=== PATIENT | male | born 1980 | race Caucasian/White ===

== ENCOUNTER 2016-08-17 13:47 | Inpatient (IN) | payer MEDICARE, MEDICAID ==
[~2016-08-17] VITALS: Ht 167.6 cm; Wt 78.2 kg
[~2016-08-17 13:47] MED LIST: ARIP15TA3 PO; BUPR-93 PO
[2016-08-17 18:14] LABS: BASOPHILS # (AUTO) 0.06 K/uL (0.00-0.20); BASOPHILS % (AUTO) 0.6 % (0.0-2.0); EOSINOPHILS # (AUTO) 0.25 K/uL (0.00-0.70); EOSINOPHILS % (AUTO) 2.34 % (1.0-6.0); HEMATOCRIT 43.1 % (41-53); HEMOGLOBIN 14.6 g/dL (13.5-17.5); LYMPHOCYTES # (AUTO) 2.5 K/uL (1.0-4.8); LYMPHOCYTES % (AUTO) 23.4 % (22.0-44.0); MEAN CORPUSCULAR HEMOGLOBIN 29.4 pg (26.0-34.0); MEAN CORPUSCULAR VOLUME 86 fL (80-100); MONOCYTES # (AUTO) 0.6 K/uL (0.1-1.0); MONOCYTES % (AUTO) 6.1 % (2.0-9.0); NEUTROPHILS # (AUTO) 7.1 K/uL (1.8-7.7); NEUTROPHILS % (AUTO) 67.6 % (40.0-70.0); PLATELET COUNT (AUTO) 364 K/uL (150-450); RED BLOOD CELL COUNT(AUTO) 4.99 MIL/uL (4.50-5.90); RED CELL DISTRIBUTION WIDTH 12.8 % (11.5-14.5); WHITE BLOOD COUNT (AUTO) 10.5 K/uL (4.5-11.0)
[2016-08-17 18:25] LABS: ANION GAP 7 mmol/L (8-16); CALCIUM, TOTAL 8.9 mg/dL (8.8-10.5); CARBON DIOXIDE 29 mmol/L (22-29); CHLORIDE 102 mmol/L (98-107); CREATININE 1.28 mg/dL (0.60-1.30); GLOMERULAR FILTR. RATE CALC > 60 mL/min (>60); POTASSIUM 4.1 mmol/L (3.5-5.1); SODIUM SERUM 138 mmol/L (136-145); UREA NITROGEN, BLOOD 12 mg/dL (7-18)
[2016-08-17 18:32] LABS: ALANINE AMINOTRANSFERASE 41 U/L (12-78); ALBUMIN 3.7 g/dL (3.4-5.0); ASPARTATE AMINOTRANSFERASE 24 U/L (15-37); BILIRUBIN,TOTAL 0.7 mg/dL (0.1-1.0); TOTAL PROTEIN, SERUM 7.4 g/dL (6.4-8.2)
[2016-08-17] MEDS ORDERED: ZOLPIDEM TARTRATE 10 MG TABLET PO PRN (20:15)
[2016-08-17] MEDS ORDERED: OLANZapine 5 MG RAPDIS TABLET PO PRN (20:15)
[2016-08-17 21:40] VITALS: BP 126/68
[2016-08-17] MEDS ORDERED: INFLUENZA VIRUS VACCINE QVS 2016-17 (3YR+)/PF 60 MCG/0.5 ML SYRINGE IM ONE (22:15)
[2016-08-18 07:08] VITALS: BP 125/65
[2016-08-18 09:06] VITALS: BP 104/60
[2016-08-18] MEDS ORDERED: HydrOXYzine PAMOATE 50 MG CAPSULE PO PRN (13:45)
[2016-08-18] MEDS ORDERED: GuaiFENesin/D-METHORPHAN [SUGAR-FREE] 200-20MG/10 ML SYRUP UDCUP PO PRN (13:45)
[2016-08-18] MEDS ORDERED: LOPERAMIDE HCL 2 MG CAPSULE PO PRN (13:45)
[2016-08-18] MEDS ORDERED: TUBERCULIN, PURIFIED PROTEIN DERIVATIVE 5 TU/0.1 ML SYG ID ONE (13:45)
[2016-08-18] MEDS ORDERED: MAGNESIUM HYDROXIDE SUSPENSION 30 ML UDCUP PO PRN (13:45)
[2016-08-18] MEDS ORDERED: ACETAMINOPHEN 325 MG TABLET PO PRN (13:45)
[2016-08-18] MEDS ORDERED: PROMETHAZINE HCL 25 MG TABLET PO PRN (13:45)
[2016-08-18 16:12] VITALS: BP 119/62
[2016-08-18] MEDS: THIAMINE HCL 100 MG TABLET PO SCH (17:07)
[2016-08-18] MEDS ORDERED: ARIPiprazole ER SUSPENSION 400 MG PRE-FILLED DUAL CHAMBER SYRINGE IM ONE (21:00)
[2016-08-18] MEDS ORDERED: OLANZapine 5 MG RAPDIS TABLET PO SCH (21:00)
[2016-08-18] MEDS: ARIPiprazole 15 MG TABLET PO SCH (21:07)
[2016-08-19 02:50] VITALS: BP 112/63
[2016-08-19 08:27] VITALS: BP 106/65
[2016-08-19] MEDS: THIAMINE HCL 100 MG TABLET PO SCH ×2 (09:27→17:00)
[2016-08-19] MEDS: MULTIVITAMINS WITH MINERALS, THERAPEUTIC TABLET PO SCH (09:27)
[2016-08-19] MEDS: FOLIC ACID 1 MG TABLET PO SCH (09:27)
[2016-08-19 16:00] VITALS: BP 118/67
[2016-08-19] MEDS: LORazepam 2 MG TABLET PO PRN (17:00)
[2016-08-19] MEDS: ARIPiprazole 15 MG TABLET PO SCH (20:35)
[2016-08-20 06:42] VITALS: BP 110/64
[2016-08-20 08:20] VITALS: BP 109/65
[2016-08-20] MEDS: LORazepam 2 MG TABLET PO PRN ×2 (09:33→17:28)
[2016-08-20] MEDS: MULTIVITAMINS WITH MINERALS, THERAPEUTIC TABLET PO SCH (09:33)
[2016-08-20] MEDS: FOLIC ACID 1 MG TABLET PO SCH (09:33)
[2016-08-20] MEDS: THIAMINE HCL 100 MG TABLET PO SCH ×2 (09:33→17:28)
[2016-08-20] MEDS ORDERED: ARIP15TA3 PO (13:35)
[2016-08-20] MEDS ORDERED: ARIP400S3 IM (13:35)
[2016-08-20 16:00] VITALS: BP 117/71
[2016-08-20] MEDS: ARIPiprazole 15 MG TABLET PO SCH (20:34)
[2016-08-21 06:45] VITALS: BP 118/78
[2016-08-21 08:03] VITALS: BP 116/61
[2016-08-21] MEDS ORDERED: ARIP15TA3 PO (08:54)
[2016-08-21] MEDS ORDERED: ARIP400S3 IM (08:54)
[2016-08-21] MEDS: NICOTINE 14 MG/24 HOUR PATCH TD SCH (09:00)
[2016-08-21] MEDS: THIAMINE HCL 100 MG TABLET PO SCH ×2 (09:09→17:02)
[2016-08-21] MEDS: FOLIC ACID 1 MG TABLET PO SCH (09:09)
[2016-08-21] MEDS: MULTIVITAMINS WITH MINERALS, THERAPEUTIC TABLET PO SCH (09:09)
[2016-08-21] MEDS ORDERED: NALT50 PO (11:04)
[2016-08-21 16:00] VITALS: BP 113/70
[2016-08-21] MEDS: LORazepam 2 MG TABLET PO PRN (17:02)
[2016-08-21] MEDS: MAG HYDROX/AL HYDROX/SIMETH ES 30 ML SUSPENSION UDCUP PO PRN (20:33)
[2016-08-21] MEDS: ARIPiprazole 15 MG TABLET PO SCH (21:03)
[2016-08-22 06:59] VITALS: BP 109/65
[2016-08-22 08:14] VITALS: BP 115/69
[2016-08-22] MEDS: NALTREXONE HCL 50 MG TABLET PO SCH (08:20)
[2016-08-22] MEDS: FOLIC ACID 1 MG TABLET PO SCH (08:20)
[2016-08-22] MEDS: THIAMINE HCL 100 MG TABLET PO SCH ×2 (08:20→16:57)
[2016-08-22] MEDS: MULTIVITAMINS WITH MINERALS, THERAPEUTIC TABLET PO SCH (08:20)
[2016-08-22] MEDS: NICOTINE 14 MG/24 HOUR PATCH TD SCH (08:20)
[2016-08-22] MEDS: LORazepam 2 MG TABLET PO PRN (12:39)
[2016-08-22 16:00] VITALS: BP 108/77
[2016-08-22] MEDS: ARIPiprazole 15 MG TABLET PO SCH (20:31)
[2016-08-23 06:44] VITALS: BP 106/67
[2016-08-23 08:26] VITALS: BP 110/65
[2016-08-23] MEDS: NALTREXONE HCL 50 MG TABLET PO SCH (08:45)
[2016-08-23] MEDS: MULTIVITAMINS WITH MINERALS, THERAPEUTIC TABLET PO SCH (08:45)
[2016-08-23] MEDS: THIAMINE HCL 100 MG TABLET PO SCH ×2 (08:45→16:59)
[2016-08-23] MEDS: FOLIC ACID 1 MG TABLET PO SCH (08:45)
[2016-08-23] MEDS: NICOTINE 14 MG/24 HOUR PATCH TD SCH (08:46)
[2016-08-23] MEDS: LORazepam 2 MG TABLET PO PRN ×2 (12:23→16:59)
[2016-08-23 16:08] VITALS: BP 115/68
[2016-08-23] MEDS: MAG HYDROX/AL HYDROX/SIMETH ES 30 ML SUSPENSION UDCUP PO PRN (18:42)
[2016-08-23] MEDS: ARIPiprazole 15 MG TABLET PO SCH (21:34)
[2016-08-24 06:29] VITALS: BP 107/63
[2016-08-24] MEDS: MULTIVITAMINS WITH MINERALS, THERAPEUTIC TABLET PO SCH (08:26)
[2016-08-24] MEDS: NALTREXONE HCL 50 MG TABLET PO SCH (08:26)
[2016-08-24] MEDS: FOLIC ACID 1 MG TABLET PO SCH (08:27)
[2016-08-24] MEDS: THIAMINE HCL 100 MG TABLET PO SCH ×2 (08:27→17:12)
[2016-08-24] MEDS: NICOTINE 14 MG/24 HOUR PATCH TD SCH (08:27)
[2016-08-24 09:32] VITALS: BP 114/60
[2016-08-24] MEDS: LORazepam 2 MG TABLET PO PRN (12:00)
[2016-09-15] MEDS ORDERED: ARIPiprazole ER SUSPENSION 400 MG PRE-FILLED DUAL CHAMBER SYRINGE IM SCH (09:00)
== END 2016-08-24 16:50 | disposition home or self-care (01) | DRG 885 ==
LOC: EMS 13:49 → EEVIPCON 13:49 → B3A 20:15
PROVIDERS: ADMIT Psychiatry & Neurology Psychiatry; ATTEND Psychiatry & Neurology Psychiatry
PROC: GZ51ZZZ Individual Psychotherapy, Behavioral (ICD-10-PCS; principal; 2016-08-17)
DX: F20.0 Paranoid schizophrenia (principal); F17.210 Nicotine dependence, cigarettes, uncomplicated; F15.10 Other stimulant abuse, uncomplicated; Z59.0 Homelessness; Z81.8 Family history of other mental and behavioral disorders; Z91.19 Patient's noncompliance with other medical treatment and regimen
CPT/HCPCS: 90471; 99285; G0480; J0401

== ENCOUNTER 2016-09-27 20:28 | Inpatient (IN) | payer MEDICARE, MEDICAID ==
[~2016-09-27] VITALS: Ht 167.6 cm; Wt 76.3 kg
[~2016-09-27 20:28] MED LIST changes: +ARIP400S3 IM; -BUPR-93 PO; +NALT50 PO
[2016-09-27 21:41] LABS: BASOPHILS # (AUTO) 0.08 K/uL (0.00-0.20); BASOPHILS % (AUTO) 0.9 % (0.0-2.0); EOSINOPHILS # (AUTO) 0.56 K/uL (0.00-0.70); EOSINOPHILS % (AUTO) 6.09 % (1.0-6.0); HEMATOCRIT 41.2 % (41-53); HEMOGLOBIN 13.7 g/dL (13.5-17.5); LYMPHOCYTES # (AUTO) 2.8 K/uL (1.0-4.8); LYMPHOCYTES % (AUTO) 30.6 % (22.0-44.0); MEAN CORPUSCULAR HEMOGLOBIN 29.1 pg (26.0-34.0); MEAN CORPUSCULAR HGB CONC 33.3 G/dL (31.0-37.0); MEAN CORPUSCULAR VOLUME 87 fL (80-100); MONOCYTES # (AUTO) 0.8 K/uL (0.1-1.0); MONOCYTES % (AUTO) 8.4 % (2.0-9.0); PLATELET COUNT (AUTO) 300 K/uL (150-450); RED BLOOD CELL COUNT(AUTO) 4.71 MIL/uL (4.50-5.90); RED CELL DISTRIBUTION WIDTH 13.7 % (11.5-14.5); WHITE BLOOD COUNT (AUTO) 9.2 K/uL (4.5-11.0)
[2016-09-27 22:30] LABS: ANION GAP 8 mmol/L (8-16); CALCIUM, TOTAL 8.6 mg/dL (8.8-10.5); CARBON DIOXIDE 29 mmol/L (22-29); CHLORIDE 105 mmol/L (98-107); CREATININE 1.34 mg/dL (0.60-1.30); GLOMERULAR FILTR. RATE CALC 60 mL/min (>60); SODIUM SERUM 142 mmol/L (136-145); UREA NITROGEN, BLOOD 16 mg/dL (7-18)
[2016-09-27 22:36] LABS: ALANINE AMINOTRANSFERASE 24 U/L (12-78); ALBUMIN 3.6 g/dL (3.4-5.0); ASPARTATE AMINOTRANSFERASE 22 U/L (15-37); BILIRUBIN,TOTAL 0.4 mg/dL (0.1-1.0); TOTAL PROTEIN, SERUM 6.9 g/dL (6.4-8.2)
[2016-09-27] MEDS ORDERED: HALOPERIDOL 5 MG TABLET PO PRN (22:45)
[2016-09-27] MEDS ORDERED: ZOLPIDEM TARTRATE 10 MG TABLET PO PRN (22:45)
[2016-09-28 09:23] VITALS: BP 106/68
[2016-09-28 09:24] VITALS: BP 106/68
[2016-09-28] MEDS ORDERED: PNEUMOCOCCAL VACCINE POLYVALENT 0.5 ML VIAL [PPSV23] IM ONE (10:15)
[2016-09-28] MEDS: NALTREXONE HCL 50 MG TABLET PO SCH (12:34)
[2016-09-28] MEDS: NICOTINE 7 MG/24 HOUR PATCH TD SCH (12:34)
[2016-09-28 16:22] VITALS: BP 106/65
[2016-09-28] MEDS: ARIPiprazole 15 MG TABLET PO SCH (20:04)
[2016-09-29 00:25] VITALS: BP 103/62
[2016-09-29 08:32] VITALS: BP 120/61
[2016-09-29] MEDS: NICOTINE 7 MG/24 HOUR PATCH TD SCH (08:51)
[2016-09-29] MEDS: NALTREXONE HCL 50 MG TABLET PO SCH (08:51)
[2016-09-29] MEDS ORDERED: ARIPiprazole LAUROXIL ER SUSPENSION 882 MG/3.2 ML SYRINGE IM ONE (09:00)
[2016-09-29 16:16] VITALS: BP 108/61
[2016-09-29] MEDS: ARIPiprazole 15 MG TABLET PO SCH (20:35)
[2016-09-30 00:47] VITALS: BP 101/69
[2016-09-30 08:12] VITALS: BP 108/64
[2016-09-30] MEDS: NALTREXONE HCL 50 MG TABLET PO SCH (08:35)
[2016-09-30] MEDS: NICOTINE 7 MG/24 HOUR PATCH TD SCH (08:35)
[2016-09-30 16:12] VITALS: BP 111/71
[2016-09-30] MEDS: LORazepam 2 MG TABLET PO PRN (17:22)
[2016-09-30] MEDS: ARIPiprazole 15 MG TABLET PO SCH (20:37)
[2016-10-01 03:42] VITALS: BP 117/72
[2016-10-01 08:13] VITALS: BP 114/66
[2016-10-01] MEDS: NALTREXONE HCL 50 MG TABLET PO SCH (09:02)
[2016-10-01] MEDS: NICOTINE 7 MG/24 HOUR PATCH TD SCH (09:03)
[2016-10-01] MEDS: LORazepam 2 MG TABLET PO PRN (11:19)
[2016-10-01 16:19] VITALS: BP 106/61
[2016-10-01] MEDS: ARIPiprazole 15 MG TABLET PO SCH (20:32)
[2016-10-02 04:59] VITALS: BP 102/65
[2016-10-02] MEDS: NALTREXONE HCL 50 MG TABLET PO SCH (08:57)
[2016-10-02] MEDS: NICOTINE 7 MG/24 HOUR PATCH TD SCH (09:00)
[2016-10-02 09:45] VITALS: BP 107/64
[2016-10-02 16:17] VITALS: BP 106/67
[2016-10-02] MEDS: ARIPiprazole 15 MG TABLET PO SCH (20:15)
[2016-10-03 05:58] VITALS: BP 114/73
[2016-10-03 08:25] VITALS: BP 110/65
[2016-10-03] MEDS: NICOTINE 7 MG/24 HOUR PATCH TD SCH (09:17)
[2016-10-03] MEDS: NALTREXONE HCL 50 MG TABLET PO SCH (09:17)
[2016-10-03 16:12] VITALS: BP 108/67
[2016-10-03] MEDS: ARIPiprazole 15 MG TABLET PO SCH (20:36)
[2016-10-03] MEDS ORDERED: ACETAMINOPHEN 325 MG TABLET PO PRN (20:45)
[2016-10-03] MEDS ORDERED: IBUPROFEN 600 MG TABLET PO PRN (20:45)
[2016-10-04 00:10] VITALS: BP 107/67
[2016-10-04 05:00] VITALS: BP 100/70
[2016-10-04] MEDS: NALTREXONE HCL 50 MG TABLET PO SCH (08:24)
[2016-10-04] MEDS: NICOTINE 7 MG/24 HOUR PATCH TD SCH (08:24)
[2016-10-04 08:50] VITALS: BP 107/71
[2016-10-04 16:06] VITALS: BP 107/64
[2016-10-04] MEDS: ARIPiprazole 15 MG TABLET PO SCH (20:42)
[2016-10-05 08:13] VITALS: BP 115/78
[2016-10-05] MEDS: NALTREXONE HCL 50 MG TABLET PO SCH (08:29)
[2016-10-05] MEDS: NICOTINE 7 MG/24 HOUR PATCH TD SCH (08:29)
[2016-10-05] MEDS ORDERED: ARIP882S IM (11:01)
[2016-10-28] MEDS ORDERED: ARIPiprazole LAUROXIL ER SUSPENSION 882 MG/3.2 ML SYRINGE IM SCH (09:00)
== END 2016-10-05 12:30 | disposition home or self-care (01) | DRG 885 ==
LOC: EMS 20:33 → B2X 09-28 07:53
PROC: 3E0234Z Introduction of Serum, Toxoid and Vaccine into Muscle, Percutaneous Approach (ICD-10-PCS; principal; 2016-09-28)
DX: F20.0 Paranoid schizophrenia (principal); R45.851 Suicidal ideations; F32.9 Major depressive disorder, single episode, unspecified; F12.90 Cannabis use, unspecified, uncomplicated; F15.90 Other stimulant use, unspecified, uncomplicated; Z71.51 Drug abuse counseling and surveillance of drug abuser; Z23 Encounter for immunization; Z91.14 Patient's other noncompliance with medication regimen; Z79.899 Other long term (current) drug therapy
CPT/HCPCS: 90471; 99285; G0480

== ENCOUNTER 2019-08-06 16:12 | Emergency (ER) | payer MEDICARE, OTHER ==
[~2019-08-06] VITALS: Ht 167.6 cm; Wt 77.3 kg
[~2019-08-06 16:12] MED LIST changes: +ARIP15TA2 PO; -ARIP15TA3 PO; -ARIP400S3 IM; +ARIP882S IM; -NALT50 PO; +NALT50TA6 PO
[2019-08-06] MEDS ORDERED: ARIP400S IM (16:20)
[2019-08-06 17:14] VITALS: BP 129/88
== END 2019-08-06 18:02 | disposition home or self-care (01) ==
LOC: EMS 16:15
DX: L25.9 Unspecified contact dermatitis, unspecified cause (principal); F20.9 Schizophrenia, unspecified; F19.90 Other psychoactive substance use, unspecified, uncomplicated